=== PATIENT | female | born 1970 | race Caucasian/White ===

== ENCOUNTER → 2016-10-22 | Outpatient (CLI) | payer OTHER ==
[~2016-10-22] MED LIST: ADVAIR 250/501 DISK IH; ADVAIR 500/501 DISK IH; ALBUTEROL17 GM IH; ASPIRIN E.C.81 M1 PO; ATIVAN1 MG PO; AVELOX400 MG PO; B COMPLEX #11 EACH PO; CALCIUM500 M4 PO; CARDIZEM CD,CA120 MG PO; CARDIZEM30 MG G-TUBE; CARDIZEM30 MG PO; DAILY MULTIPLE1 EACH PO; DURAGESIC75 MCG S; FENTANYL1 EAC1 TD; NEURONTIN300 MG PO; OMEPRAZOLE40 M1 PO; OSPHENA60 MG PO; OXYCODONE HCL15 MG PO; OXYCONTIN15 MG PO; PRAVASTATIN SOD80 MG PO; PROVENTIL,2.5 MG/3 M IH; SINGULAIR10 MG PO; SYNTHROID88 MCG PO; TRAZODONE HCL150 MG PO; VIIBRYD20 MG PO; VITAMIN D5000 UNIT PO; XANAX1 MG PO; ZANAFLEX4 M1 PO; ZANAFLEX4 MG PO; ZIPSOR25 MG PO; ZOLOFT100 MG PO
== END | disposition home or self-care (01) ==
LOC: CDC 13:53
DX: Z01.810 Encounter for preprocedural cardiovascular examination (principal); M25.441 Effusion, right hand; S62.310A Displaced fracture of base of second metacarpal bone, right hand, initial encounter for closed fracture; M79.641 Pain in right hand
CPT/HCPCS: 93000

== ENCOUNTER 2016-12-08 13:08 | Emergency (ER) | payer OTHER ==
[~2016-12-08] VITALS: Ht 175.3 cm; Wt 106.8 kg
[2016-12-08 14:03] LABS: HEMATOCRIT 41.7 % (36.0-46.0); MCH 28.3 PG (29.0-34.0); MCHC 32.4 G/DL (30.0-36.0); MCV 87.4 FL (83-99); MEAN PLAT.VOLUME 9.8 uM^3 (9.5-12.4); PLATELET COUNT 188 K/uL (156-360); RBC DIS.WIDTH-SD 41.8 % (39-53); RED BLOOD COUNT 4.77 M/uL (3.80-5.20); WHITE BLOOD COUNT 6.7 K/uL (4.1-10.2)
[2016-12-08 14:13] LABS: CHLORIDE 107 mEq/L (99-109); POTASSIUM 4.7 mEq/L (3.7-5.4); SODIUM 142 mEq/L (136-147)
[2016-12-08 14:14] LABS: GLUCOSE 123 mg/dL (70-99)
[2016-12-08 14:16] LABS: ANION GAP 10 MEQ/L (2-14)
[2016-12-08 14:18] LABS: GFR ESTIMATE (CALCULATED) 57 mL/min/
[2016-12-08 14:19] LABS: UREA NITROGEN (BUN) 14 mg/dL (9-23)
[2016-12-08] MEDS ORDERED: NARCAN4 MG NS (14:34)
[2016-12-08 17:47] VITALS: BP 135/79
== END 2016-12-08 17:50 | disposition home or self-care (01) ==
LOC: EME → EDBD 13:08 → EME 17:50
PROVIDERS: Emergency Medicine
DX: T40.605A Adverse effect of unspecified narcotics, initial encounter (principal); R06.89 Other abnormalities of breathing; F17.200 Nicotine dependence, unspecified, uncomplicated; Z88.1 Allergy status to other antibiotic agents
CPT/HCPCS: 80048; 81003; 85027; 93005; 99281; 99285; J2270; J2310; J2405; J7030

== ENCOUNTER 2017-07-16 23:32 | Emergency (ER) | payer OTHER ==
[~2017-07-16] VITALS: Ht 175.3 cm; Wt 111.7 kg
[~2017-07-16 23:32] MED LIST changes: +NARCAN4 MG NS
[2017-07-17] MEDS ORDERED: VALIUM2 MG PO (03:38)
[2017-07-17] MEDS ORDERED: MEDROL DOSEPAK4 MG PO (03:38)
[2017-07-17] MEDS ORDERED: DILAUDID2 MG PO (03:38)
[2017-07-17 04:10] VITALS: BP 102/56
== END 2017-07-17 04:13 | disposition home or self-care (01) ==
LOC: EME 23:32
DX: M54.42 Lumbago with sciatica, left side (principal); M48.00 Spinal stenosis, site unspecified; M79.7 Fibromyalgia; K21.9 Gastro-esophageal reflux disease without esophagitis; J45.909 Unspecified asthma, uncomplicated; G89.29 Other chronic pain; F41.9 Anxiety disorder, unspecified; F32.9 Major depressive disorder, single episode, unspecified; F17.200 Nicotine dependence, unspecified, uncomplicated; Z88.1 Allergy status to other antibiotic agents
CPT/HCPCS: 99281; 99284; J1100; J2270